=== PATIENT | female | born 1950 | race Caucasian/White ===

== ENCOUNTER 2021-02-24 12:45 | Outpatient (CLI) | payer MEDICARE, SELFPAY ==
--- NOTE | ~2021-02-24 | XR_ITS ---
XR lumbar spine 6V w bending DATE: 02/24/2021 13:24 INDICATION: Patient fell on back 3 months ago. Low back pain, radiating to pelvis. Sciatica. TECHNIQUE: AP, bilateral oblique, coned lateral lumbosacral views. Neutral, flexion and extension lat eral views. COMPARISON: None FINDINGS: There is diffuse osteopenia. There are 4 functional lumbar vertebrae. There is degenerative spurring at the apophyseal joints of the lower lumbosacral area with associated grade 1 anterolisthesis at the lumbosacral articulation. There is mild degenerative disc disease in the upper lumbar area and to a greater extent at L5-S1. No fracture is evident. No bone destruction. No instability on flexion or extension. No spondylolysis is evident. The sacroiliac joints are intact. IMPRESSION: Osteopenia Degenerative changes apophyseal joints of the lower lumbar and lumbosacral area with associated grade 1 anterolisthesis at L5-S1 Mild to moderate degenerative disc disease, most prominent at L5-S1 Reviewed, dictated and finalized at location A.
[2021-02-24 13:00] LABS: Basophils Absolute Auto 0.07 K/mm3 (0.00-0.10); Eosinophils Percent Auto 1.5 % (1.0-6.0); Hematocrit 41.2 % (35.0-42.0); Hemoglobin 12.9 g/dL (11.7-13.8); Immature Granulocyte Absolute 0.04 K/mm3 (0.00-0.00); Immature Granulocyte Percent A 0.6 % (0.0-0.0); Lymphocytes Absolute Auto 1.67 K/mm3 (1.10-4.50); Lymphocytes Percent Auto 24.7 % (18.0-42.0); Mean Corpuscular HGB Conc 31.3 g/dL (32.0-36.0); Mean Corpuscular Hemoglobin 25.1 pg (27.0-31.0); Mean Corpuscular Volume 80.3 fL (78.0-102.0); Mean Platelet Volume 9.8 fl (9.2-11.8); Monocytes Absolute Auto 0.43 K/mm3 (0.10-0.90); Monocytes Percent Auto 6.4 % (2.0-11.0); Neutrophils Absolute Auto 4.4 K/mm3 (1.7-7.2); Neutrophils Percent Auto 65.8 % (50.0-70.0); Platelet Count Result 252 K/mm3 (150-420); Red Blood Count 5.13 M/mm3 (4.20-5.40); Red Cell Distribution Width 12.7 % (11.6-14.4); White Blood Count 6.8 K/mm3 (4.8-10.8)
[2021-02-24 13:14] LABS: Hemoglobin A1C 7.2 % (<5.7)
[2021-02-24 14:08] LABS: Alanine Aminotransferase 47 U/L (14-59); Albumin Level 4.1 g/dL (3.4-5.0); Alkaline Phosphatase 73 U/L (46-116); Anion Gap 13 mmol/L (8-16); Aspartate Amino Transferase 45 U/L (15-37); Bilirubin,Total 0.4 mg/dL (0.00-1.00); Blood Urea Nitrogen 7 mg/dL (7-18); Calcium 8.7 mg/dL (8.5-10.1); Carbon Dioxide 27 mmol/L (21-32); Chloride 106 mmol/L (98-108); Cholesterol 193 mg/dL (0-200); Estimated Glomerular Filt Rate > 60; Free T4 Free Thyroxine 1.56 ng/dL (0.76-1.46); Glucose 162 mg/dL (70-99); HDL Direct 59 mg/dL (40-60); LDL Cholesterol Calculated 99 mg/dL (<130); Osmolality Calculated 304 mOsm/kg (285-295); Potassium 3.9 mmol/L (3.5-5.1); Sodium 146 mmol/L (136-145); Thyroid Stimulating Hormone 0.07 uIU/mL (0.36-3.74); Total Protein 6.8 g/dL (6.4-8.2); Triglycerides 176 mg/dL (0-150)
== END 2021-02-24 12:46 | disposition home or self-care (01) ==
LOC: CHSLAB 12:51
PROVIDERS: PCP Family Medicine; Visit Provider Family Medicine
DX: E03.9 Hypothyroidism, unspecified (principal); Z13.220 Encounter for screening for lipoid disorders; R73.09 Other abnormal glucose; S39.012A Strain of muscle, fascia and tendon of lower back, initial encounter
CPT/HCPCS: 36415; 72114; 80053; 80061; 83036; 84439; 84443; 85025

== ENCOUNTER 2021-03-05 09:50 | Outpatient (RCR) | payer MEDICARE, SELFPAY ==
--- NOTE | 2021-03-05 12:20 | PTOPEVAL ---
Thank you for referring Luz Maria Samano to [facility].? The patient is scheduled to be seen for therapy? ____x/week for ___ weeks. Please review, sign, date and return this plan of care THONG. I agree with and certify that the following plan of care is medically necessary. Referring Physician Date Admitting Provider: Attending Provider: Rubens Sullivan MD Referring Provider: *PT Outpatient Evaluation Start: 03/05/21 09:54 Freq: Status: Active Protocol: Document 03/05/21 09:54 ACR (Rec: 03/05/21 11:04 ACR [id number]) Therapy Assessment Status Assessment Status Assessment Status Evaluation Evaluation Information Problem Diagnosis low back pain Onset 12/01/20 Subjective Information Patient reports that she Query Text:As Reported By Patient/ started having back pain in Family November where she slipped and caught herself on a sink but felt no pain. She states that a week later she got up to go to the bathroom she got a sharp pain. She states that when she walks she has to sit down to rest because her back is in so much pain. She is unable to stand or sit for a long period of time. She states that she is unable to go to the store because anything more than 45 minutes she has extreme pain. She states that she has to move slowly when navigating stairs. She states that her doctor said she had a strained muscle . Patient states that she does not have any radicular symptoms and the pain is localized to the right lumbar region which she describes as a strong tooth ache in her back. Patient states that she has difficulty getting to bed and if she moves to one side or the other she has a strong grabbing sensation in that area. Patient states that she took muscle relaxers and an anti inflammatory but those did not help. She states that
--- NOTE | 2021-04-07 14:57 | PTOPEVAL ---
Thank you for referring Luz Maria Samano to [facility].? The patient is scheduled to be seen for therapy? ____x/week for ___ weeks. Please review, sign, date and return this plan of care THONG. I agree with and certify that the following plan of care is medically necessary. Referring Physician Date Admitting Provider: Attending Provider: Rubens Sullivan MD Referring Provider: *PT Outpatient Evaluation Start: 03/05/21 09:54 Freq: Status: Active Protocol: Document 04/07/21 13:57 ACR (Rec: 04/07/21 14:57 ACR [id number]) Therapy Assessment Status Assessment Status Assessment Status Progress Evaluation Information Problem Diagnosis low back pain Onset 12/01/20 Subjective Information Patient states that since Query Text:As Reported By Patient/ beginning therapy she is Family feeling a little better, but it has been a slow progress. She still is unable to be on her feet for a period of time and navigating steps. She has a follow up with her doctor tomorrow and will assess what to do next. Pain Assessment Timing of Pain Assessment Timing of Pain Assessment Assessment Pain Scale Pain Scale Used Numeric (1 - 10) Self Report Pain Assessment Right Lower Back Reported Pain Level 5 Greatest Pain Intensity 8 Pain Score Pain Score 5: Self Report Interventions Used Interventions Used By Clinicians Activity or ADL's,Exercise Cervical and Lumbar ROM Lumbar ROM Lumbar ROM 50% of Normal Lower Extremity Muscle Strength Testing Hip Strength Right Hip Flexion Strength 4+ Good + Left Hip Flexion Strength 5 Normal Knee Strength Right Knee Flexion Strength 4 Good Knee Extension Strength 4 Good Knee Strength Comments Patient has pain in the back with resistance Left Knee Flexion Strength 5 Normal Knee Extension Strength 5 Normal Muscle Length Testing Muscle Length Testing Left Hamstring Length 10 Query Text:(90 - 90 Position) Right Hamstring Length 45 Query Text:(90 - 90 Position) Palpation Assessment Palpation Palpation Patient continues to be TTP at the R PSIS, R gluteals, and R lumbar paraspinals. Gait Assessment Gait Assessment Additional Ambulation Comments Patient ambulates withproper heel strike B, but continues to have decreased hip
== END 2021-04-07 16:02 | disposition home or self-care (01) ==
LOC: CHSPT 09:50
PROVIDERS: Visit Provider Family Medicine
DX: S39.012A Strain of muscle, fascia and tendon of lower back, initial encounter (principal)
CPT/HCPCS: 97014; 97110; 97140; 97161; G0283

== ENCOUNTER 2021-04-20 13:28 | Outpatient (CLI) | payer MEDICARE, SELFPAY ==
--- NOTE | ~2021-04-20 | MR_ITS ---
EXAMINATION: MR lumbar spine wo con EXAM DATE: 04/20/2021 14:06 INDICATION: M54.16 - Radiculopathy, lumbar region . Chronic low back pain. TECHNIQUE: Multi-sequential, multiplanar MR images of the lumbar spine were obtained without contrast . Sagittal T1, T2, T2 fat saturation images. Axial T2 weighted images. There is no prior study for comparison. FINDINGS: There is 4 mm anterolisthesis L5 on S1, without spondylolysis. Moderate loss of this disc h eight. The vertebral bodies are otherwise aligned. The vertebral body and disc heights are otherwise well maintained. The conus medullaris terminates at the L1/2 level and has normal signal intensity an d morphology. There are no suspicious marrow signal abnormalities. Paraspinal soft tissue is unremar kable. Level by level evaluation: T12-L1: Disc does not extend beyond the endplate margin. Facet arthropathy: None. Neural foraminal stenosis: No stenosis. Central canal stenosis: No stenosis. L1-L2: Disc does not extend beyond the endplate margin. Facet arthropathy: None. Neural foraminal stenosis: No stenosis. Central canal stenosis: No stenosis. L2-L3: Disc does not extend beyond the endplate margin. Facet arthropathy: Mild. Neural foraminal stenosis: No stenosis. Central canal stenosis: No stenosis. L3-L4: Disc does not extend beyond the endplate margin. Facet arthropathy: Mild to moderate . Ligamentum flavum enlargement. Neural foraminal stenosis: Mild to moderate right, mild left. Central canal stenosis: Mild. L4-L5: There is a mild to moderate diffuse disc bulge. Facet arthropathy: Moderate. Neural foraminal stenosis: Moderate left, mild to moderate right. Central canal stenosis: Moderate. L5-S1: There is a mild to moderate diffuse disc bulge. Facet arthropathy: Bulky right, but fused bilaterally. Neural foraminal stenosis: Mild left. Central canal stenosis: No stenosis. IMPRESSION: 1. Up to moderate lower lumbar spondylosis as detailed above. Reviewed, dictated and finalized at location A. [employer]
== END 2021-04-20 13:29 | disposition home or self-care (01) ==
PROVIDERS: PCP Family Medicine; Visit Provider Physician Assistant Medical
DX: M54.16 Radiculopathy, lumbar region (principal); G89.29 Other chronic pain; M47.816 Spondylosis without myelopathy or radiculopathy, lumbar region
CPT/HCPCS: 72148

== ENCOUNTER 2021-05-06 12:25 | Outpatient (CLI) | payer MEDICARE, SELFPAY ==
[2021-05-06 12:57] LABS: Creatinine Urine 143.85 mg/dL (40-278); Microalbumin Urine Random < 13.0 mg/L
[2021-05-06 13:23] LABS: Alanine Aminotransferase 33 U/L (14-59); Free T4 Free Thyroxine 1.25 ng/dL (0.76-1.46); Thyroid Stimulating Hormone 0.23 uIU/mL (0.36-3.74)
== END 2021-05-06 12:26 | disposition home or self-care (01) ==
LOC: CHSLAB 12:28
PROVIDERS: PCP Family Medicine; Visit Provider Physician Assistant Medical
DX: R79.89 Other specified abnormal findings of blood chemistry (principal); E11.9 Type 2 diabetes mellitus without complications; E03.9 Hypothyroidism, unspecified
CPT/HCPCS: 36415; 82043; 84439; 84443; 84460

== ENCOUNTER 2021-05-21 13:59 | Outpatient (CLI) | payer MEDICARE, SELFPAY ==
--- NOTE | ~2021-05-21 | DEXA_ITS ---
Bone Density Report Name: PALLAVI ADORNO Age: 70 Sex: Female Ethnicity: White Date of : 1950 Indication: postmenopausal; Referring Provider: Chary Villegas Study: Bone densitometry was performed. Exam Date: May 21, 2021 Accession number: [id number] Bone Density: Region BMD T-score Z-score Classification AP Spine (L1-L4) 0.953 -0.9 1.2 Normal Femoral Neck (Left) 0.671 -1.6 0.1 Osteopenia Total Hip (Left) 0.850 -0.8 0.7 Normal Total Hip Bilateral Avg 0.867 -0.7 0.8 Normal Femoral Neck (Right) 0.715 -1.2 0.5 Osteopenia Total Hip (Right) 0.883 -0.5 0.9 Normal World Health Organization criteria for BMD impression classify patients as: Normal (T-score at or above -1.0), Osteopenia (T-score between -1.0 and -2.5), or Osteoporosis (T-score at or below -2.5). 10-year Fracture Risk(1): Major Osteoporotic Fracture 9.6% Hip Fracture 1.3% Reported Risk Factors: [place] (), Neck BMD=0.671, BMI=31.5 (1) FRAX(R) Version 3.08. Fracture probability calculated for an untreated patient. Fracture probability may be lower if the patient has received treatment. Clinical Information Provided by Patient: Patient maximum height was 62 Menopause Age: 52 No regular weight bearing exercise Drinks caffeinated beverages Onset of menses at age 16 Number of children 5 Impression: The patient has low bone mass, based on the Left Femoral Neck T-score. The patient has an estimated ten-year risk of hip fracture of 1.3% and an estimated ten-year risk of major fracture of 9.6%, based on the WHO FRAX algorithm. Discussion: BONE DENSITY IS LOW AT ONE OR MORE SKELETAL SITES. This patient's lowest T-score is low at one or more skeletal sites. It meets the World Health Organization's (WHO) criteria for ?low bone mass? (T-score between -1.0 and -2.5). The patient's 10-year risk of fracture as calculated by FRAX is less than the threshold where pharmacological therapy is recommended by the National Osteoporosis Foundation (NOF). However, all treatment decisions require clinical judgment and consideration of individual patient factors, including patient preferences, comorbidities, previous drug use, risk factors not captured in the FRAX model (e.g., frailty, falls, vitamin D deficiency, increased bone turnover, interval significant decline in bone density) and possible under or overestimation of fracture risk by FRAX. The patient should follow a healthful lifestyle (good nutrition with adequate calcium and vitamin D, and appropriate weight-bearing exercise). Follow-Up: Consider repeating this study in 2 to 3 years to reassess this patient's status, or sooner if there is some new clinical indication. Reported by: TAO on 05/21/2021 2:25:00 PM. waylon Rush
--- NOTE | ~2021-05-21 | MM_ITS ---
EXAMINATION: MM screening theron BI w gerardo HISTORY: Screening TECHNIQUE: Craniocaudal and mediolateral oblique 3-D tomosynthesis images were obtained and synthetic 2-D images were generated. CAD analysis was submitted and interpreted. COMPARISON: No prior mammogram is available for comparison at this institution. BREAST PARENCHYMAL COMPOSITION: There are scattered areas of fibroglandular density. FINDINGS: There is no evidence of suspicious mass, calcification, or architectural distortion to sugg est malignancy in either breast. There has been no suspicious interval change. IMPRESSION: 1. No mammographic evidence of malignancy. 2. Recommend routine screening mammography in one year. BI-RADS Category 1: Negative Reviewed, dictated and finalized at location A. [employer]
== END 2021-05-21 14:00 | disposition home or self-care (01) ==
LOC: ANHIMG 14:01
PROVIDERS: PCP Physician Assistant Medical; Visit Provider Physician Assistant Medical
DX: Z12.31 Encounter for screening mammogram for malignant neoplasm of breast (principal); Z78.0 Asymptomatic menopausal state; M85.89 Other specified disorders of bone density and structure, multiple sites
CPT/HCPCS: 77063; 77067; 77080

== ENCOUNTER 2021-07-01 14:46 | Outpatient (CLI) | payer MEDICARE, SELFPAY ==
[2021-07-01 16:47] LABS: Free T4 Free Thyroxine 1.17 ng/dL (0.76-1.46); Thyroid Stimulating Hormone 0.55 uIU/mL (0.36-3.74)
== END 2021-07-01 14:47 | disposition home or self-care (01) ==
PROVIDERS: PCP Physician Assistant Medical; Visit Provider Physician Assistant Medical
DX: E03.9 Hypothyroidism, unspecified (principal)
CPT/HCPCS: 36415; 84439; 84443

== ENCOUNTER 2022-04-21 15:14 | Outpatient (CLI) | payer MEDICARE, SELFPAY ==
--- NOTE | ~2022-04-21 | XR_ITS ---
EXAM: XR knee RT 3V DATE: 04/21/2022 15:37 HISTORY: M25.561 - Pain in right knee . COMPARISON: None available. FINDINGS: Decreased mineralization. No fracture or dislocation. No lytic or blastic lesion. Mild med ial and lateral compartment narrowing. Mild patellar osteophytosis. No erosion or periosteal change. Soft tissues within normal limits. Small volume joint fluid. IMPRESSION: Mild tricompartmental osteoarthritic change. Small joint effusion. Reviewed, dictated and finalized at location K. ET HOOKER
== END 2022-04-21 15:15 | disposition home or self-care (01) ==
LOC: CHSIMG 15:16
PROVIDERS: PCP Family Medicine; Visit Provider Physician Assistant Medical
DX: M25.561 Pain in right knee (principal)
CPT/HCPCS: 73562

== ENCOUNTER 2022-05-18 09:57 | Outpatient (RCR) | payer MEDICARE, SELFPAY ==
--- NOTE | 2022-05-18 10:57 | PTOPEVAL1 ---
Assessment and note entered by Cecille Wiggins, PT Evaluation Information Assessment Status Evaluation Diagnosis R knee pain Onset 04/23/22 Subjective Information Luz Maria Samano reports that her right knee started aching a few months ago for unknown reasons. She used to walk for exercise and she has been limited with that recently. She states she can walk only a few blocks before the ache in her knee makes her sit. She is also limited with standing more than an hour which limits her cooking ability. She went to her doctor on 04/23/22 and was referred for a x-ray. The x-ray showed tri-compartmental osteoarthritis and swelling on the knee. She was prescribed an anti-inflammatory which is not changing her pain. She also uses warm epsom salt baths which help decrease pain while she is in the bath. Reported Pain Level Pain Score 3: Self Report Assessment PT Clinical Summary Luz Maria Samano presents with right knee pain with an insidious onset, x-rays revealed osteoarthritis . She is having difficulty with standing more than an hour, walking more than a few blocks, straightening the right knee, and crossing the right leg over the left. This leads to deficits in her ability to walk for exercise, cook, clean, and sleep. She objectively demonstrates decreased and painful right knee AROM, decreased right knee and hip strength, decreased functional LE strength , decreased dynamic balance, impaired gait, and decreased functional abilities. She will benefit from skilled PT to address these limitations. Plan of Care Interventions Electrical Stimulation,Hot Pack/Cold Pack, Intermittent Compression,Manual Therapy,Neuro Re- education,Patient/Caregiver Educati,Therapeutic Activities,Therapeutic Exercise PT Services Indicated Yes Treatment Frequency and 2 times a week for 8 visits Duration These treatments will address the objective and functional deficits as defined above. The patient will be advanced safely and appropriately in order for the patient to progress towards his/her prior level of function. Additional exercises will be introduced and as well as a comprehensive home exercise program upon discharge, if needed, ?to ensure carryover of functional gains achieved in the clinic. This treatment plan has been reviewed and agreement upon by the patient.
--- NOTE | 2022-06-10 10:53 | PTOPDC ---
Assessment and note entered by Cecille Wiggins, PT Evaluation Information Assessment Status Progress Diagnosis R knee pain Onset 04/23/22 Subjective Information Luz Maria reports that her right knee pain has not improved with physical therapy. She still has pain with walking and standing for long periods. She is unable to walk for exercise and she has difficulty with heavy cylinder honer. She also has had the pain wake her at night. She plans to return to her doctor since her pain has not improved. Reported Pain Level Pain Score 3: Self Report Assessment PT Clinical Summary Luz Maria Samano has completed 7 skilled PT visits for right knee pain. She is reporting no overall change in right knee pain and still has pain with walking and prolonged standing. Pain also has woke her at night a few times. She plans to return to her doctor since pain has not improved with PT. She demonstrates improved right knee extension ROM but flexion remains limited and unchanged compared to her initial evaluation. She also continues to demonstrate deficits in right hip, knee, and ankle strength with pain elicited during testing. She will be discharged to an independent home exercise program. Plan of Care Interventions Electrical Stimulation,Hot Pack/Cold Pack,Patient/ Caregiver Educati,Therapeutic Activities, Therapeutic Exercise PT Services Indicated No Treatment Frequency and Discharge Duration
== END 2022-06-10 13:20 | disposition home or self-care (01) ==
LOC: CHSPT 09:57
PROVIDERS: Visit Provider Physician Assistant Medical
DX: M25.561 Pain in right knee (principal)
CPT/HCPCS: 97014; 97110; 97161; G0283

== ENCOUNTER 2022-07-26 13:30 | Outpatient (CLI) | payer MEDICARE, SELFPAY ==
[2022-07-26 13:44] LABS: Basophils Absolute Auto 0.07 K/mm3 (0.00-0.10); Basophils Percent Auto 1.2 % (0.0-1.0); Eosinophils Absolute Auto 0.17 K/mm3 (0.02-0.50); Hematocrit 48.3 % (35.0-42.0); Hemoglobin 14.7 g/dL (11.7-13.8); Immature Granulocyte Absolute 0.01 K/mm3 (0.00-0.00); Immature Granulocyte Percent A 0.2 % (0.0-0.0); Lymphocytes Absolute Auto 1.75 K/mm3 (1.10-4.50); Lymphocytes Percent Auto 30.8 % (18.0-42.0); Mean Corpuscular HGB Conc 30.4 g/dL (32.0-36.0); Mean Corpuscular Hemoglobin 26.5 pg (27.0-31.0); Mean Corpuscular Volume 87.2 fL (78.0-102.0); Mean Platelet Volume 10.2 fl (9.2-11.8); Monocytes Absolute Auto 0.38 K/mm3 (0.10-0.90); Monocytes Percent Auto 6.7 % (2.0-11.0); Neutrophils Absolute Auto 3.3 K/mm3 (1.7-7.2); Neutrophils Percent Auto 58.1 % (50.0-70.0); Nucleated Red Blood Cells Absolute Auto 0.02 K/mm3 (0.00-0.00); Nucleated Red Blood Cells Perc 0.4 % (0-0.0); Red Blood Count 5.54 M/mm3 (4.20-5.40); Red Cell Distribution Width 13.6 % (11.6-14.4); White Blood Count 5.7 K/mm3 (4.8-10.8)
[2022-07-26 14:00] LABS: Platelet Count Result 47 K/mm3 (150-420)
[2022-07-26 14:08] LABS: Creatinine Urine 50.12 mg/dL (40-278); MALB Creatinine Ratio 25.9 mg/g (0-30); Microalbumin Urine Random < 13.0 mg/L
[2022-07-26 14:31] LABS: Alkaline Phosphatase 72 U/L (46-116); Anion Gap 8 mmol/L (8-16); Aspartate Amino Transferase 25 U/L (15-37); Bilirubin,Total 0.6 mg/dL (0.00-1.00); Blood Urea Nitrogen 9 mg/dL (7-18); Calcium 8.2 mg/dL (8.5-10.1); Carbon Dioxide 27 mmol/L (21-32); Chloride 104 mmol/L (98-108); Cholesterol 194 mg/dL (0-200); Estimated Glomerular Filt Rate > 60; Glucose 117 mg/dL (70-99); HDL Direct 59 mg/dL (40-60); LDL Cholesterol Calculated 104 mg/dL (<130); Osmolality Calculated 287 mOsm/kg (285-295); Potassium 4.2 mmol/L (3.5-5.1); Sodium 139 mmol/L (136-145); Thyroid Stimulating Hormone 0.31 uIU/mL (0.36-3.74); Total Protein 6.8 g/dL (6.4-8.2); Triglycerides 157 mg/dL (0-150)
[2022-07-26 14:54] LABS: Alanine Aminotransferase 27 U/L (14-59)
[2022-07-27 16:41] LABS: Vitamin B12 342 pg/mL (193-986)
== END 2022-07-26 13:31 | disposition home or self-care (01) ==
LOC: CHSLAB 13:32
PROVIDERS: PCP Family Medicine; Visit Provider Physician Assistant Medical
DX: R71.8 Other abnormality of red blood cells (principal); Z13.0 Encounter for screening for diseases of the blood and blood-forming organs and certain disorders involving the immune mechanism; E11.9 Type 2 diabetes mellitus without complications; E03.9 Hypothyroidism, unspecified; E78.5 Hyperlipidemia, unspecified
CPT/HCPCS: 36415; 80053; 80061; 82043; 82607; 84443; 85025

== ENCOUNTER 2022-09-07 12:53 | Outpatient (CLI) | payer MEDICARE, SELFPAY ==
[2022-09-07 13:06] LABS: Basophils Absolute Auto 0.08 K/mm3 (0.00-0.10); Basophils Percent Auto 1.1 % (0.0-1.0); Eosinophils Absolute Auto 0.18 K/mm3 (0.02-0.50); Eosinophils Percent Auto 2.6 % (1.0-6.0); Hematocrit 43.7 % (35.0-42.0); Hemoglobin 14.5 g/dL (11.7-13.8); Immature Granulocyte Absolute 0.03 K/mm3 (0.00-0.00); Immature Granulocyte Percent A 0.4 % (0.0-0.0); Lymphocytes Absolute Auto 2.04 K/mm3 (1.10-4.50); Lymphocytes Percent Auto 29.1 % (18.0-42.0); Mean Corpuscular HGB Conc 33.2 g/dL (32.0-36.0); Mean Corpuscular Hemoglobin 27.3 pg (27.0-31.0); Mean Corpuscular Volume 82.3 fL (78.0-102.0); Mean Platelet Volume 9.7 fl (9.2-11.8); Monocytes Absolute Auto 0.46 K/mm3 (0.10-0.90); Monocytes Percent Auto 6.6 % (2.0-11.0); Neutrophils Absolute Auto 4.2 K/mm3 (1.7-7.2); Neutrophils Percent Auto 60.2 % (50.0-70.0); Platelet Count Result 230 K/mm3 (150-420); Red Blood Count 5.31 M/mm3 (4.20-5.40); Red Cell Distribution Width 13.5 % (11.6-14.4)
[2022-09-07 15:11] LABS: Anion Gap 8 mmol/L (8-16); Blood Urea Nitrogen 7 mg/dL (7-18); Calcium 8.2 mg/dL (8.5-10.1); Carbon Dioxide 29 mmol/L (21-32); Chloride 109 mmol/L (98-108); Estimated Glomerular Filt Rate > 60; Glucose 127 mg/dL (70-99); Osmolality Calculated 302 mOsm/kg (285-295); Potassium 3.9 mmol/L (3.5-5.1); Sodium 146 mmol/L (136-145)
== END 2022-09-07 12:54 | disposition home or self-care (01) ==
LOC: CHSLAB 12:55
PROVIDERS: PCP Family Medicine; Visit Provider Physician Assistant Medical
DX: R71.8 Other abnormality of red blood cells (principal); E03.9 Hypothyroidism, unspecified; E83.51 Hypocalcemia
CPT/HCPCS: 36415; 80048; 84443; 85025

== ENCOUNTER 2022-10-06 11:36 | Outpatient (CLI) | payer MEDICARE, SELFPAY ==
--- NOTE | ~2022-10-06 | MR_ITS ---
EXAMINATION: MR knee RT wo con DATE: 10/06/2022 12:27 INDICATION: Chronic right knee pain TECHNIQUE: Magnetic resonance imaging (MRI) of the right knee was performed without intravenous contr ast. Sequences included coronal PD-weighted FSE, coronal PD-weighted FS FSE, sagittal T2-weighted FS E, sagittal PD-weighted FS FSE and axial PD weighted fat saturated FSE. COMPARISON: None. FINDINGS: Medial compartment: Complex tear at the posterior horn of the medial meniscus with radial tear near the posterior root ap pears to extend to the majority the meniscus and with additional longitudinal vertical tear plane con tacting the inferior articular surface and extending more medially in the peripheral third of the pos terior horn. There is increased intrasubstance signal which does not unambiguously contact the articu lar surface more consistent with mucoid degeneration in the posterior body of the meniscus. Shallow c hondral ulceration with chondral surface irregularity along the anterior to central weightbearing med ial femoral condyle. Mild partial-thickness cartilage loss with smooth chondral surface along the med ial side of the medial tibial plateau. Lateral compartment: Lateral meniscus is normal. Additional shallow chondral ulceration along the posterior aspect of the lateral tibial plateau. Patellofemoral compartment: Oblique band of partial-thickness chondral ulceration extending across the medial patellar facet. Thi s is deepest superiorly near the apical ridge where there is a tiny focus of underlying subarticular edema-like signal change. Trochlear cartilage is normal. Ligaments and tendons: Anterior and posterior cruciate ligaments are normal. The medial collateral ligament and fibular huy ateral ligament complex are normal. The extensor mechanism is normal. The visualized medial and later al hamstring tendons as well as the iliotibial band are normal. Fluid: Physiologic amount of fluid in the joint space. No loose osteochondral bodies identified. Small Diane 's cyst. Osseous/other: Small bone island at the lateral tibial plateau. No fracture or pathologic marrow replacing process. IMPRESSION: 1. Complex tear at the posterior horn of the medial meniscus. 2. Mild tricompartmental osteoarthritis with regions of moderate grade chondral malacia in the medial and lateral compartments and small region of moderate to high-grade chondral malacia the medial barger llar facet. 3. Small Diane's cyst. Reviewed, dictated and finalized at location A. IMPRESSION: 1. Complex tear at the posterior horn of the medial meniscus. 2. Mild tricompartmental osteoarthritis with regions of moderate grade chondral malacia in the medial and lateral compartments and small region of moderate to high-grade chondral malacia the medial patellar facet. 3. Small Diane's cyst.
== END 2022-10-06 11:37 | disposition home or self-care (01) ==
PROVIDERS: PCP Family Medicine; Visit Provider Physician Assistant Medical
DX: M17.11 Unilateral primary osteoarthritis, right knee (principal); M25.561 Pain in right knee; S83.231A Complex tear of medial meniscus, current injury, right knee, initial encounter; M94.261 Chondromalacia, right knee; M71.21 Synovial cyst of popliteal space [Baker], right knee
CPT/HCPCS: 73721

== ENCOUNTER 2022-10-22 09:56 | Outpatient (CLI) | payer MEDICARE, SELFPAY ==
--- NOTE | 2022-10-22 10:04 | ECG_ITS ---
Measurements Intervals [place] Rate: 64 P: -12 OR: 130 QRS: 61 QRSD: 91 T: 13 QT: 404 QTc: 419 Interpretive Statements SINUS RHYTHM DELAYED PRECORDIAL R/S TRANSITION NONSPECIFIC ST-T WAVE ABNORMALITY- DIFFUSE LEADS BASELINE ARTIFACT- I, II, III, AVR, AVL, AVF, V1-V6 BORDERLINE ECG NO PREVIOUS ECG AVAILABLE FOR COMPARISON Electronically Signed On 10-22-2022 10:34:05 CDT by Felix Denis D.O.
== END 2022-10-22 09:57 | disposition home or self-care (01) ==
LOC: ANHSURGERY 09:59
PROVIDERS: PCP Family Medicine; Visit Provider Orthopaedic Surgery
DX: E11.9 Type 2 diabetes mellitus without complications (principal); R94.31 Abnormal electrocardiogram [ECG] [EKG]
CPT/HCPCS: 93005

== ENCOUNTER 2022-10-26 00:15 | Day surgery (SDC) | payer MEDICARE, SELFPAY ==
--- NOTE | 2022-10-21 14:48 | PC.NURSE ---
Report to the Outpatient Waiting Room, entrance under the green pavilion located off [facility], at time _1130 on date 10/26/22 . Planned Procedure Time: ___1330 . Time changes happen often and if your time is changed the preop area will call you the afternoon before. - You and your visitor will be asked to self-screen and do not enter if you have any COVID symptoms. - A mask is optional within the hospital at this time. Patients may have clear liquids (water, carbonated beverages, clear teas, apple juice) until 3 hours prior to surgery with a maximum of 20 ounces. - No food from midnight until time of surgery - Infants may have breast milk until 4 hours before surgery, infant formula 6 hours prior to surgery. - Children will be allowed to drink immediately following surgery. If applicable, please bring a bottle or sippy cup to assist with drinking. Juice, water, soda, and popsicles are readily available. For infants on formula, please bring formula the day of surgery. Pacifiers are allowed. Take the following medications with a SIP of water the morning of surgery: ___LEVOTHYROXINE DO NOT STOP ANY OF YOUR OTHER PRESCRIPTION MEDICATIONS PRIOR TO SURGERY ?EXCEPT THE FOLLOWING Medications to discontinue per physician IBUPROFEN PER DR MORIN Please no make-up, nail maori, hairspray, perfume, deodorant, or body powder the day of surgery. No jewelry (including any body piercings) or valuables the day of surgery, leave them at home. Please take a shower or bath the night before, or the morning of, surgery with an antibacterial soap. Wear comfortable, loose fitting clothing. Children are encouraged to wear pajamas. - Jewelry must be removed prior to entering the operating room. Rings and piercings that are not removed may be cut off. - The hospital will not accept responsibility for valuables. - Please leave all valuables, including medications, at home the day of surgery. If you are going home after surgery, a licensed public transit trolley driver must drive you home. - NO public transportation without another adult if you receive anesthesia. - We recommend that an adult stay with you for 24 hours following discharge. - We also recommend that you do not drive, make important decision, drink alcoholic beverages, or take any drugs that were not prescribed by your health care provider for at least 24 hours after your discharge time. Follow any additional instructions given to you from your surgeon. If you or anyone in your household have experienced Covid symptoms in the past week, please notify your surgeon or the nurse liaison at the phone number below for possible testing. Telephone instructions given to ____PATIENT and asked if any additional questions and then verbalized understanding. Patient advised to call surgeon office or pre surgery nurse liaison [phone] if any additional questions.
[2022-10-21 14:59] VITALS: BMI 29.6
--- NOTE | 2022-10-25 10:43 | WPDANESEPPF ---
Anes - Initial Pre Proc Eval Procedure: Operation Date: 10/26/22 13:30 Proposed Procedures p Right Knee Arthroscopy - Preet Correia MD Date/Time: 10/25/22 10:43 Surgeon: Preet Correia MD Pre Op Diagnosis: right knee medial meniscal tear Patient Data Age: 72 Gender: F Height: 1.57 m Weight: 73.5 kg Allergies Allergy/AdvReac Type Severity Reaction Status Date / Time No Known Allergies Allergy Verified 10/26/22 11:47 Home Medications Medication Instructions Recorded Confirmed Type ferrous sulfate 325 mg (65 mg 325 mg PO DAILY 02/24/21 10/26/22 History iron) tablet (FeroSul) empagliflozin 25 mg tablet 25 mg PO DAILY #90 tabs 04/21/22 10/26/22 Rx (Jardiance) levothyroxine 75 mcg tablet 75 mcg PO DAILY #90 tabs 07/27/22 10/26/22 Rx tramadol 50 mg tablet 100 mg PO Q8H PRN pain #60 tabs 09/29/22 10/26/22 Rx chlorhexidine gluconate 4 % 1 applic topical ONCE #237 mL 10/19/22 10/26/22 Rx topical liquid (Hibiclens) ibuprofen 600 mg tablet 600 mg PO Q6H PRN Pain 10/21/22 10/26/22 History metformin 500 mg tablet 500 mg PO DAILY 10/21/22 10/26/22 History Patient hx anesthesia problems: none Family hx anesthesia problems: none Results Review: All pre-operative results and documents have been reviewed as part of the pre-operative evaluation. [facility] Past Medical History Medical History BMI 28.0-28.9,adult BMI 29.0-29.9,adult BMI 31.0-31.9,adult BMI greater than 30 Borderline diabetes mellitus Hypothyroidism Low back pain Low back strain Screening for lipid disorders Surgical History Surgical History History of hernia repair History of laparoscopic cholecystectomy History of thyroidectomy Family History Family History Other Diabetes mellitus Hypertension Social History Social History (Reviewed 10/22/22 @ 10:52 by AWA De La O Smoking status: Never smoker Alcohol intake: never Substance use: never Substance use type: does not use Living arrangements: with family Additional living arrangements comments: and son Occupation/Education: retired Gender identity (if verbalized by the patient): Female Sexual Orientation (if Verbalized by the Patient): Straight or Heterosexual Spiritual care concerns: No Agree to blood products: Yes Anes - Eval Final PreProcedure Day of Procedure 10/25/22 10:43 Patient weight: overweight Heart: regular rate and rhythm Lungs: clear to auscultation Airway: Mallampati scale class II Neurological: alert and oriented Last oral intake: >/= 8 hours ASA classification: II Emergent: no Anesthetic plan: proceed Anesthesia type and monitoring: general LMA and standard monitoring Results Review: All pre-operative results and documents have been reviewed as part of the pre-operative evaluation. Informed Consent: The patient's anesthetic plan and its attendant risks and benefits were discussed with the patient/family/POA. Questions were solicited and answers provided to the satisfaction of the patient/family/POA.
[2022-10-26] VITALS (10 sets, daily range): BP systolic 108–156; BP diastolic 65–87; PULSE 63–76; RESP 12–16; TEMP 36.1–36.5; O2SAT 97–100
--- NOTE | 2022-10-26 07:19 | WPDHPUPDATE1 ---
History and Physical Update Update Date/Time: 10/26/22 07:19 History and Physical has been reviewed, including an updated exam of the patient. There are NO changes in the patient's condition. Risks, benefits, and alternatives have been discussed and questions answered. Patient agrees to proceed with procedure.
[2022-10-26] MEDS: ACETAMINOPHEN 500 MG TABLET 1000 MG PO (11:59)
[2022-10-26] MEDS: CELECOXIB 200 MG CAPSULE PO (11:59)
[2022-10-26] MEDS: LACTATED RINGERS 1,000 ML 30 ML IV CONT (12:10)
[2022-10-26 12:18] LABS: Glucose Point of Care 137 mg/dl (65-105)
[2022-10-26] MEDS: ceFAZolin 2 GM/D5W 50 ML 2 GM/50 ML BAG IVPB (12:45)
[2022-10-26] MEDS: BUPivacaine HCL 0.5% 10 ML AMP 30 ML INFILTRATE (13:25)
[2022-10-26] MEDS: fentaNYL CITRATE INJ (*CRX) 100 MCG/2 ML VIAL 25 MCG IV PUSH ×8 (14:10→15:23)
--- NOTE | 2022-10-26 14:10 | W.PM.PROC2 ---
Procedure Note - Detailed Date of Procedure 10/26/22 Pre-op Diagnosis right knee medial meniscal tear Post-op Diagnosis Other (RIGHT MEDIAL AND LATERAL MENISCUS TEAR) Procedure Performed RIGHT KNEE SCOPE Surgeon Preet Correia MD Anesthesia General Description of Procedure PATIENT WAS TAKEN TO THE OR. RIGHT LEG WAS PREPPED AND DRAPED STERILE. TROCARS WERE PLACED IN THE USUAL FASHION. CAMERA WAS INTRODUCED. THERE WAS MILD CHONDROMALACIA TO THE PATELLA FEMORAL JOINT. THERE WAS A LARGE PLICA BAND. THERE WAS A LOT OF SYNOVITIS IN ALL COMPARTMENTS. THE MEDIAL COMPARTMENT SHOWED CHONDROMALACIA TO THE MEDIAL FEMORAL CONDYLE. A SHAVER WAS USED TO PREFORM A CHONDROPLASTY. THERE WAS A COMPLEX MEDIAL MENISCUS TEAR. THE TEAR WAS RESECTED WITH A BITER AND A SHAVER DOWN TO A SMOOTH BASE. THE ACL WAS INTACT. THE LATERAL MENISCUS WAS TORN AT THE ANTERIOR HORN. THE TEAR WAS RESECTED. THE LAT COMPARTMENT HAD MINIMAL CHONDROMALACIA. CHONDROPLASTY WAS PREFORMED. A SYNOVECTOMY WAS PREFORMED WELL. THE PATELLO FEMORAL JOINT UNDERWENT CHONDROPLASTY. THERE WAS GRADE 2 CHONDROMALACIA IN PART OF THE TROCHLEA AND PART OF THE PATELLA. SYNOVECTOMY WAS PREFORMED IN THE SUPERIOR MEDIAL COMPARTMENT. THE WOUNDS WERE APPROXIMATED WITH 4.0 NYLON. STERILE DRESSING WAS APPLIED. PATIENT WAS EXTUBATED. Estimated Blood Loss 5 Complications No immediate complications Condition Stable Disposition PACU
[2022-10-26 14:13] LABS: Glucose Point of Care 103 mg/dl (65-105)
[2022-10-26] MEDS: oxyCODONE HCL (*CRX) 5 MG TAB IR PO (15:48)
== END 2022-10-26 16:53 | disposition home or self-care (01) ==
PROVIDERS: PCP Family Medicine; Visit Provider Orthopaedic Surgery
PROC: (CPT 29870; principal; 2022-10-26 13:30)
DX: S83.231A Complex tear of medial meniscus, current injury, right knee, initial encounter (principal); S83.281A Other tear of lateral meniscus, current injury, right knee, initial encounter; M65.861 Other synovitis and tenosynovitis, right lower leg; M94.261 Chondromalacia, right knee; X50.0XXA Overexertion from strenuous movement or load, initial encounter; R73.03 Prediabetes; E89.0 Postprocedural hypothyroidism; Z79.84 Long term (current) use of oral hypoglycemic drugs
CPT/HCPCS: 29880; 82948; A9270; J0690; J1100; J2250; J2370; J2405; J2704; J3010; J7120

== ENCOUNTER 2023-02-08 12:19 | Outpatient (CLI) | payer MEDICARE, SELFPAY ==
[2023-02-08 12:35] LABS: Basophils Absolute Auto 0.08 K/mm3 (0.00-0.10); Eosinophils Absolute Auto 0.13 K/mm3 (0.02-0.50); Eosinophils Percent Auto 1.6 % (1.0-6.0); Hemoglobin 14.8 g/dL (11.7-13.8); Immature Granulocyte Absolute 0.03 K/mm3 (0.00-0.00); Immature Granulocyte Percent A 0.4 % (0.0-0.0); Lymphocytes Absolute Auto 1.88 K/mm3 (1.10-4.50); Lymphocytes Percent Auto 22.6 % (18.0-42.0); Mean Corpuscular HGB Conc 32.9 g/dL (32.0-36.0); Mean Corpuscular Hemoglobin 27.8 pg (27.0-31.0); Mean Corpuscular Volume 84.6 fL (78.0-102.0); Monocytes Absolute Auto 0.56 K/mm3 (0.10-0.90); Monocytes Percent Auto 6.7 % (2.0-11.0); Neutrophils Absolute Auto 5.6 K/mm3 (1.7-7.2); Neutrophils Percent Auto 67.7 % (50.0-70.0); Platelet Count Result 222 K/mm3 (150-420); Red Blood Count 5.32 M/mm3 (4.20-5.40); Red Cell Distribution Width 13.3 % (11.6-14.4); White Blood Count 8.3 K/mm3 (4.8-10.8)
[2023-02-08 12:59] LABS: Anion Gap 9 mmol/L (8-16); Blood Urea Nitrogen 8 mg/dL (7-18); Carbon Dioxide 28 mmol/L (21-32); Chloride 107 mmol/L (98-108); Potassium 4.2 mmol/L (3.5-5.1); Sodium 144 mmol/L (136-145)
[2023-02-08 13:00] LABS: Calcium 8.5 mg/dL (8.5-10.1); Estimated Glomerular Filt Rate > 60; Glucose 140 mg/dL (70-99); Osmolality Calculated 298 mOsm/kg (285-295)
== END 2023-02-08 12:20 | disposition home or self-care (01) ==
PROVIDERS: PCP Family Medicine; Visit Provider Physician Assistant Medical
DX: E83.51 Hypocalcemia (principal); R71.8 Other abnormality of red blood cells
CPT/HCPCS: 36415; 80048; 85025

== ENCOUNTER 2023-04-07 11:10 | Outpatient (CLI) | payer MEDICARE, SELFPAY ==
[2023-04-07 11:26] LABS: Basophils Absolute Auto 0.06 K/mm3 (0.00-0.10); Basophils Percent Auto 0.9 % (0.0-1.0); Eosinophils Absolute Auto 0.13 K/mm3 (0.02-0.50); Eosinophils Percent Auto 1.9 % (1.0-6.0); Hematocrit 44.8 % (35.0-42.0); Hemoglobin 14.6 g/dL (11.7-13.8); Immature Granulocyte Absolute 0.04 K/mm3 (0.00-0.00); Immature Granulocyte Percent A 0.6 % (0.0-0.0); Lymphocytes Percent Auto 28.9 % (18.0-42.0); Mean Corpuscular HGB Conc 32.6 g/dL (32.0-36.0); Mean Corpuscular Hemoglobin 27.3 pg (27.0-31.0); Mean Corpuscular Volume 83.9 fL (78.0-102.0); Mean Platelet Volume 9.8 fl (9.2-11.8); Monocytes Absolute Auto 0.44 K/mm3 (0.10-0.90); Monocytes Percent Auto 6.3 % (2.0-11.0); Neutrophils Absolute Auto 4.3 K/mm3 (1.7-7.2); Neutrophils Percent Auto 61.4 % (50.0-70.0); Platelet Count Result 221 K/mm3 (150-420); Red Blood Count 5.34 M/mm3 (4.20-5.40); Red Cell Distribution Width 12.6 % (11.6-14.4); White Blood Count 6.9 K/mm3 (4.8-10.8)
[2023-04-07 12:37] LABS: Vitamin B12 > 2000 pg/mL (193-986)
== END 2023-04-07 11:11 | disposition home or self-care (01) ==
LOC: CHSLAB 11:12
PROVIDERS: PCP Physician Assistant Medical; Visit Provider Physician Assistant Medical
DX: R71.8 Other abnormality of red blood cells (principal)
CPT/HCPCS: 36415; 82607; 85025

== ENCOUNTER 2023-05-12 11:41 | Outpatient (CLI) | payer MEDICARE, SELFPAY ==
[2023-05-12 11:52] LABS: Basophils Absolute Auto 0.06 K/mm3 (0.00-0.10); Basophils Percent Auto 0.9 % (0.0-1.0); Eosinophils Absolute Auto 0.14 K/mm3 (0.02-0.50); Eosinophils Percent Auto 2.1 % (1.0-6.0); Hematocrit 46.2 % (35.0-42.0); Hemoglobin 15.1 g/dL (11.7-13.8); Immature Granulocyte Absolute 0.04 K/mm3 (0.00-0.00); Immature Granulocyte Percent A 0.6 % (0.0-0.0); Lymphocytes Absolute Auto 1.91 K/mm3 (1.10-4.50); Lymphocytes Percent Auto 28.3 % (18.0-42.0); Mean Corpuscular HGB Conc 32.7 g/dL (32.0-36.0); Mean Corpuscular Hemoglobin 27.7 pg (27.0-31.0); Mean Corpuscular Volume 84.6 fL (78.0-102.0); Mean Platelet Volume 9.7 fl (9.2-11.8); Monocytes Absolute Auto 0.47 K/mm3 (0.10-0.90); Neutrophils Absolute Auto 4.1 K/mm3 (1.7-7.2); Neutrophils Percent Auto 61.1 % (50.0-70.0); Platelet Count Result 221 K/mm3 (150-420); Red Blood Count 5.46 M/mm3 (4.20-5.40); Red Cell Distribution Width 12.6 % (11.6-14.4); White Blood Count 6.8 K/mm3 (4.8-10.8)
[2023-05-12 12:45] LABS: Vitamin B12 592 pg/mL (193-986)
== END 2023-05-12 11:42 | disposition home or self-care (01) ==
LOC: CHSLAB 11:43
PROVIDERS: PCP Family Medicine; Visit Provider Physician Assistant Medical
DX: R74.8 Abnormal levels of other serum enzymes (principal); R71.8 Other abnormality of red blood cells
CPT/HCPCS: 36415; 82607; 85025

== ENCOUNTER 2023-06-27 10:34 | Outpatient (CLI) | payer MEDICARE, SELFPAY ==
[2023-06-27 11:11] LABS: Basophils Absolute Auto 0.1 K/mm3 (0.0-0.1); Basophils Percent Auto 1.1 % (0.2-1.2); Eosinophils Absolute Auto 0.1 K/mm3 (0-0.3); Eosinophils Percent Auto 1.4 % (0-4.4); Hematocrit 45.2 % (37.0-47.0); Hemoglobin 14.7 g/dL (12.0-15.0); Immature Granulocyte Absolute 0.02 K/mm3 (0.00-0.031); Immature Granulocyte Percent A 0.3 % (0-0.5); Lymphocytes Absolute Auto 1.94 K/mm3 (0.9-3.2); Lymphocytes Percent Auto 26.8 % (18.3-44.2); Mean Corpuscular HGB Conc 32.5 g/dl (32-36); Mean Corpuscular Volume 82.9 fl (80-100); Mean Platelet Volume 9.6 fl (7.4-10.4); Monocytes Absolute Auto 0.5 K/mm3 (0.1-0.6); Monocytes Percent Auto 6.2 % (2.6-8.5); Neutrophils Absolute Auto 4.6 K/mm3 (1.3-6.7); Neutrophils Percent Auto 64.2 % (45.5-73.1); Platelet Count Result 232 k/mm3 (150-375); Red Blood Count 5.45 M/mm3 (4.2-5.4); White Blood Count 7.2 K/mm3 (4.5-10.0)
[2023-06-27 11:58] LABS: Iron 147 ug/dL (37-170)
[2023-06-27 12:00] LABS: Alanine Aminotransferase 33 U/L (6-35); Albumin Level 4.5 g/dL (3.5-5.1); Alkaline Phosphatase 74 U/L (38-126); Anion Gap 8 mmol/L (8-16); Aspartate Amino Transferase 39 U/L (14-36); Bilirubin,Total 0.9 mg/dL (0.2-1.3); Blood Urea Nitrogen 8 mg/dL (7-17); Calcium 9.1 mg/dL (8.4-10.2); Carbon Dioxide 29 mmol/L (22-30); Chloride 103 mmol/L (98-107); Estimated Glomerular Filt Rate > 60; Glucose 159 mg/dL (65-110); Potassium 4.2 mmol/L (3.4-5.0); Sodium 140 mmol/L (137-145)
[2023-06-27 12:07] LABS: Percent Iron Saturation 41 % (20-50)
[2023-06-30 07:38] LABS: Methylmalonic Acid 81 nmol/L (87-318)
== END 2023-06-27 10:35 | disposition home or self-care (01) ==
PROVIDERS: Nurse Practitioner Family; PCP Family Medicine; Visit Provider Internal Medicine Hematology & Oncology
DX: D50.9 Iron deficiency anemia, unspecified (principal); D75.1 Secondary polycythemia
CPT/HCPCS: 36415; 80053; 82607; 82668; 82728; 83540; 83550; 83921; 85025

== ENCOUNTER 2023-07-08 14:03 | Outpatient (CLI) | payer MEDICARE, SELFPAY ==
[2023-07-15 10:02] LABS: CALR Exon 9 Mutation Not Detected (Not Detected); CSF3R Exon 14/17 Mutation Not Detected (Not Detected); Clinical Indication Not Provided; JAK2 Exon 12 Mutation Not Detected (Not Detected); JAK2 V617F Mutation Not Detected (Not Detected); MPL Exon 10 Mutation Not Detected (Not Detected)
== END 2023-07-08 14:04 | disposition home or self-care (01) ==
LOC: CHSLAB 14:09
PROVIDERS: PCP Family Medicine; Visit Provider Nurse Practitioner Family
DX: D45 Polycythemia vera (principal)
CPT/HCPCS: 36415; 81219; 81270; 81279; 81339; 81479

== ENCOUNTER 2023-09-08 11:07 | Outpatient (CLI) | payer MEDICARE, SELFPAY ==
[2023-09-08 11:44] LABS: Creatinine Urine 97.89 mg/dL (40-278); MALB Creatinine Ratio 13.2 mg/g (0-30); Microalbumin Urine Random < 13.0 mg/L
[2023-09-08 12:41] LABS: Cholesterol 219 mg/dL (0-200); HDL Direct 73 mg/dL (40-60); LDL Cholesterol Calculated 99 mg/dL (<130); Triglycerides 235 mg/dL (0-150)
[2023-09-09 13:44] LABS: Thyroid Stimulating Hormone 1.31 uIU/mL (0.36-3.74)
== END 2023-09-08 11:08 | disposition home or self-care (01) ==
LOC: CHSLAB 11:09
PROVIDERS: PCP Family Medicine; Visit Provider Physician Assistant Medical
DX: E03.9 Hypothyroidism, unspecified (principal); E11.9 Type 2 diabetes mellitus without complications; E83.51 Hypocalcemia; E78.5 Hyperlipidemia, unspecified
CPT/HCPCS: 36415; 80061; 82043; 84439; 84443

== ENCOUNTER 2023-12-28 17:15 | Outpatient (CLI) | payer MEDICARE, SELFPAY ==
--- NOTE | ~2023-12-28 | XR_ITS ---
Right Shoulder Technique: AP and scapular Y views were obtained. Clinical History: Pain Findings: No fracture or dislocation is seen. Osseous alignment is anatomic. The glenohumeral joint i s intact. There is minimal AC joint degenerative change. Soft tissues are unremarkable. Impression: Minimal AC joint degenerative change. Reviewed, dictated and finalized at [facility]. Impression: Minimal AC joint degenerative change.
== END 2023-12-28 17:16 | disposition home or self-care (01) ==
PROVIDERS: PCP Physician Assistant Medical; Visit Provider Physician Assistant Medical
DX: G89.29 Other chronic pain (principal); M25.511 Pain in right shoulder
CPT/HCPCS: 73030

== ENCOUNTER 2024-01-18 12:39 | Outpatient (CLI) | payer MEDICARE, SELFPAY ==
[2024-01-18 12:56] LABS: Basophils Absolute Auto 0.1 K/mm3 (0.0-0.1); Eosinophils Absolute Auto 0.1 K/mm3 (0-0.3); Eosinophils Percent Auto 1.7 % (0-4.4); Hematocrit 42.7 % (37.0-47.0); Immature Granulocyte Absolute 0.02 K/mm3 (0.00-0.031); Immature Granulocyte Percent A 0.3 % (0-0.5); Lymphocytes Absolute Auto 2.12 K/mm3 (0.9-3.2); Lymphocytes Percent Auto 30.5 % (18.3-44.2); Mean Corpuscular HGB Conc 32.8 g/dl (32-36); Mean Corpuscular Hemoglobin 27.3 pg (26-34); Mean Corpuscular Volume 83.4 fl (80-100); Mean Platelet Volume 9.5 fl (7.4-10.4); Monocytes Absolute Auto 0.4 K/mm3 (0.1-0.6); Monocytes Percent Auto 6.1 % (2.6-8.5); Neutrophils Absolute Auto 4.2 K/mm3 (1.3-6.7); Neutrophils Percent Auto 60.4 % (45.5-73.1); Platelet Count Result 228 k/mm3 (150-375); Red Blood Count 5.12 M/mm3 (4.2-5.4); Red Cell Distribution Width 12.9 % (11.5-14.5); White Blood Count 6.9 K/mm3 (4.5-10.0)
[2024-01-18 16:42] LABS: Iron 84 ug/dL (37-170)
[2024-01-18 17:01] LABS: Percent Iron Saturation 23 % (20-50)
[2024-01-18 19:30] LABS: Folic Acid 14.9 ng/mL (2.76->20)
== END 2024-01-18 12:40 | disposition home or self-care (01) ==
PROVIDERS: Nurse Practitioner Family; PCP Physician Assistant Medical; Visit Provider Internal Medicine Hematology & Oncology
DX: D75.1 Secondary polycythemia (principal); D50.9 Iron deficiency anemia, unspecified
CPT/HCPCS: 36415; 82607; 82728; 82746; 83540; 83550; 85025

== ENCOUNTER 2024-07-20 11:46 | Outpatient (CLI) | payer MEDICARE, SELFPAY ==
[2024-07-20 11:57] LABS: Basophils Absolute Auto 0.07 K/mm3 (0.00-0.10); Eosinophils Absolute Auto 0.21 K/mm3 (0.02-0.50); Eosinophils Percent Auto 3.1 % (1.0-6.0); Hemoglobin 13.3 g/dL (11.7-13.8); Immature Granulocyte Absolute 0.02 K/mm3 (0.00-0.00); Immature Granulocyte Percent A 0.3 % (0.0-0.0); Lymphocytes Absolute Auto 1.82 K/mm3 (1.10-4.50); Mean Corpuscular HGB Conc 32.4 g/dL (32-36); Mean Corpuscular Hemoglobin 26.7 pg (27.0-31.0); Mean Corpuscular Volume 82.3 fL (78.0-102.0); Mean Platelet Volume 9.5 fl (9.2-11.8); Monocytes Absolute Auto 0.48 K/mm3 (0.10-0.90); Monocytes Percent Auto 7.1 % (2.0-11.0); Neutrophils Absolute Auto 4.14 K/mm3 (1.70-7.20); Neutrophils Percent Auto 61.5 % (50.0-70.0); Platelet Count Result 223 K/mm3 (150-420); Red Blood Count 4.98 M/mm3 (4.20-5.40); Red Cell Distribution Width 12.9 % (11.6-14.4); White Blood Count 6.7 K/mm3 (4.8-10.8)
--- OUTSIDE RECORDS SUMMARY | 2024-07-20 12:11 | XMS_ITS | Clinical Summary ---
Author Organization [facility] Frankie Cotto Address [address] [place] [address] Care Team Providers Care Sales Assistants And Salespersons Name Role Phone Rubens Sullivan MD Primary Care Provider [phone] Allergies No known active allergies Medications metFORMIN (GLUCOPHAGE) 500 mg tablet Take 500 mg by mouth 2 times daily with meals. Active traMADoL (ULTRAM) 50 mg tablet Take by mouth every 6 hours as needed for Pain. Active levothyroxine 75 mcg tablet Take 75 mcg by mouth daily in the morning. Active gabapentin (NEURONTIN) 300 mg capsule Take 300 mg by mouth daily at bedtime. 12/28/2023 Active Active Problems No known active problems Encounters Date Type Department Care Team Description 07/05/2024 External Device Data [facility] ABSTRACTION Provider, Abstract 07/04/2024 External Device Data [facility] ABSTRACTION Provider, Abstract 07/03/2024 External Device Data [facility] ABSTRACTION Provider, Abstract 06/26/2024 External Device Data [facility] ABSTRACTION Provider, Abstract from Last 3 Months Family History Medical History Relation Name Comments Diabetes Mother Relation Name Status Comments Brother 1 Brother 2 Brother 3 Daughter 1 Alive Daughter 2 Alive Daughter 3 Alive Father Mother Sister 1 Alive Sister 2 Alive Sister 3 Alive Son 1 Alive Son 2 Alive Social History Tobacco Use Types Packs/Day Years Used Date Smoking Tobacco: Never Smokeless Tobacco: Never Tobacco Cessation:Counseling Given: Not Answered Alcohol Use Standard Drinks/Week Comments Not Currently 0 (1 standard drink = 0.6 oz pur e alcohol) Comments Unknown Sex and Gender Information Value Date Recorded Sex Assigned at Not on file Legal Sex Female 9:54 AM REGISTERED DIETETIC TECHNICIAN Gender Identity Not on file Sexual Orientation Not on file Last Filed Vital Signs Vital Sign Reading Time Taken Comments Blood Pressure 129/78 01/24/2024 2:23 PM CDT Pulse 74 01/24/2024 2:23 PM CDT Temperature 36.2 C (97.1 F) 01/24/2024 2:23 PM CDT Respiratory Rate 15 01/24/2024 2:23 PM CDT Oxygen Saturation 96% 01/24/2024 2:23 PM CDT Inhaled Oxygen Concentration - - Weight 74.6 kg (164 lb 6.4 oz) 01/24/2024 2:23 P M CDT Height 157.5 cm (5' 2 ) 06/27/2023 9:52 AM REGISTERED DIETETIC TECHNICIAN Body Mass Index 30.07 06/27/2023 9:52 AM REGISTERED DIETETIC TECHNICIAN Plan of Treatment Upcoming Encounters Date Type Department Care Team (Late st Contact Info) Description 07/30/2024 2:15 PM REGISTERED DIETETIC TECHNICIAN Office Visit [facility] Oncology and Hematology - [place] [address] [place] [address] Patrick Neff MD [address] [place] [address] Health Maintenance Due Date Last Done Comments DTAP/TDAP/TD VACCINES (1 - Tdap) 08/24/1971 BREAST CANCER SCREENING 1992 COLORECTAL SCREENING 1997 Colorectal Cancer Screening 1997 FIT-DNA Q 3 years 1997 FIT/FOBT Q 1 year 1997 Flex Sig/CT Colonography Q 5 years 1997 PNEUMOCOCCAL VACCINE 65+ YEARS (1 of 1 - PCV) 08/24/19 03 ZOSTER VACCINE (1 of 2) 2002 OSTEOPOROSIS SCREENING 2017 INFLUENZA VACCINE (#1) 2024 RSV VACCINE (60+ or ) (1 - 1-dose 75+ series) 08/24/2027 Insurance MEDICARE PART A AND B [facility] [place] [id number] Care Teams Sales Assistants And Salespersons Relationship Specialty Start Date End Date Rubens Sullivan MD [address] [place] [address] PCP - General Family Practice 06/02/23
[2024-07-20 12:17] LABS: Creatinine Urine 96.83 mg/dL (40-278); MALB Creatinine Ratio 13.4 mg/g (0-30); Microalbumin Urine Random < 13.0 mg/L
[2024-07-20 13:26] LABS: Alanine Aminotransferase 43 U/L (14-59); Alkaline Phosphatase 72 U/L (46-116); Anion Gap 11 mmol/L (4-12); Aspartate Amino Transferase 38 U/L (15-37); Bilirubin,Total 0.5 mg/dL (0.00-1.00); Blood Urea Nitrogen 5 mg/dL (7-18); Carbon Dioxide 29 mmol/L (21-32); Chloride 104 mmol/L (98-108); Cholesterol 215 mg/dL (0-200); Estimated Glomerular Filt Rate > 60; Glucose 136 mg/dL (70-99); HDL Direct 60 mg/dL (40-60); LDL Cholesterol Calculated 112 mg/dL (<130); Osmolality Calculated 297 mOsm/kg (285-295); Potassium 4.2 mmol/L (3.5-5.1); Sodium 144 mmol/L (136-145); Thyroid Stimulating Hormone 1.77 uIU/mL (0.36-3.74); Total Protein 6.7 g/dL (6.4-8.2); Triglycerides 214 mg/dL (0-150)
[2024-07-20 13:30] LABS: Calcium 8.4 mg/dL (8.5-10.1)
== END 2024-07-20 11:47 | disposition home or self-care (01) ==
LOC: CHSLAB 11:48
PROVIDERS: PCP Family Medicine; Visit Provider Nurse Practitioner Family
DX: E03.9 Hypothyroidism, unspecified (principal); E11.9 Type 2 diabetes mellitus without complications; E78.5 Hyperlipidemia, unspecified; Z13.0 Encounter for screening for diseases of the blood and blood-forming organs and certain disorders involving the immune mechanism; Z13.1 Encounter for screening for diabetes mellitus; Z13.220 Encounter for screening for lipoid disorders
CPT/HCPCS: 36415; 80053; 80061; 82043; 84443; 85025

== ENCOUNTER 2024-09-06 11:19 | Outpatient (CLI) | payer MEDICARE, SELFPAY ==
[2024-09-06 12:19] LABS: Alanine Aminotransferase 36 U/L (14-59); Cholesterol 167 mg/dL (0-200); Creatine Kinase 29 U/L (26-192); HDL Direct 100 mg/dL (40-60); LDL Cholesterol Calculated 42 mg/dL (<130); Triglycerides 124 mg/dL (0-150)
--- OUTSIDE RECORDS SUMMARY | 2024-09-06 12:39 | XMS_ITS | Clinical Summary ---
Author Organization [facility] Frankie Cotto Address [address] [place] [address] Care Team Providers Care Well Logging Captain Name Role Phone Rubens Sullivan MD Primary Care Provider [phone] Allergies No known active allergies Medications metFORMIN [...] Encounters Date Type Department Care Team Description 08/29/2024 External Device Data [facility] ABSTRACTION Provider, Abstract 08/18/2024 External Device Data [facility] ABSTRACTION Provider, Abstract 08/17/2024 External Device Data [facility] ABSTRACTION Provider, Abstract 08/14/2024 External Device Data [facility] ABSTRACTION Provider, Abstract 07/31/2024 External Device Data [facility] ABSTRACTION Provider, Abstract 07/05/2024 External Device Data [facility] ABSTRACTION Provider, [...] on file Legal Sex Female 9:54 AM GAS DERRICK OPERATOR Gender Identity Not on file Sexual Orientation [...] cm (5' 2 ) 06/27/2023 9:52 AM GAS DERRICK OPERATOR Body Mass Index 30.07 06/27/2023 9:52 AM GAS DERRICK OPERATOR Plan of Treatment Health Maintenance Due Date Last Done Comments DTAP/TDAP/TD VACCINES (1 - Tdap) 08/24/1971 Traditional Medicare (O) Annual Wellness Visit 08/23 BREAST CANCER SCREENING 1992 COLORECTAL SCREENING 1997 Colorectal Cancer Screening 1997 FIT-DNA Q 3 years 1997 FIT/FOBT Q 1 year 1997 Flex Sig/CT Colonography Q 5 years 1997 PNEUMOCOCCAL VACCINE 50+ YEARS (1 of 1 - PCV) 08/24/19 03 ZOSTER VACCINE (1 of 2) 2002 OSTEOPOROSIS SCREENING 2017 INFLUENZA VACCINE (#1) 2024 RSV VACCINE (60+ or ) (1 - 1-dose 75+ series) 08/24/2027 Insurance MEDICARE PART A AND B [facility] [place] [id number] Care Teams Well Logging Captain Relationship Specialty Start Date End Date Rubens Sullivan MD [address] [place] [address] PCP - General Family Practice 06/02/23
== END 2024-09-06 11:20 | disposition home or self-care (01) ==
LOC: CHSLAB 11:20
PROVIDERS: PCP Family Medicine; Visit Provider Physician Assistant Medical
DX: E78.5 Hyperlipidemia, unspecified (principal)
CPT/HCPCS: 36415; 80061; 82550; 84460